=== PATIENT | female | born 1950 | race African-American/Black ===

== ENCOUNTER 2022-10-18 03:29 | Inpatient (IN) | payer OTHER ==
[2022-10-18 04:46] LABS: BASO % 0.5 % (0-2.0); EOS % 0.2 % (0-4.5); HEMATOCRIT 27.7 % (32.4-45.2); HEMOGLOBIN 8.8 GM/dL (10.7-15.3); LYMPH % 3.9 % (8-40); MCH 28.4 pg (25.7-33.7); MCHC 31.8 g/dl (32.0-36.0); MEAN CELL VOLUME 89.5 fl (80-96); MEAN PLT VOLUME 9.8 fl (7.5-11.1); MONO % 5.8 % (3.8-10.2); NEUT % 89.6 % (42.8-82.8); PLATELET COUNT 348 10^3/uL (134-434); RDW 17.9 % (11.6-15.6); VENOUS BASE EXCESS 9.5 mmol/L (-2-2); VENOUS O2 SATURATION 36.2 % (70-80); VENOUS PCO2 62.7 mmHg (38-52); VENOUS PH 7.368 (7.310-7.410); WHITE BLOOD COUNT 13.5 K/mm3 (4.0-10.0)
[2022-10-18 05:08] LABS: CALCIUM 8.7 mg/dL (8.5-10.1)
[2022-10-18 05:09] LABS: ALBUMIN 1.9 g/dl (3.4-5.0); BLOOD UREA NITROGEN 16.5 mg/dL (7-18)
[2022-10-18 05:14] LABS: BILIRUBIN,TOTAL 0.3 mg/dL (0.2-1); TOT PROT 6.7 g/dl (6.4-8.2)
[2022-10-18] MEDS ORDERED: CEFEPIME HCL/D5W 2 GM/50 ML BAG IVPB ONE (08:12)
[2022-10-18] MEDS ORDERED: CEFEPIME HCL/D5W 1 GM/50 ML BAG IVPB ONE (08:14)
[2022-10-18] MEDS ORDERED: VANCOMYCIN 1 GM in D5W (PRE-DOCKED) 1,000 MG/250 ML IVPB ONE (08:15)
[2022-10-18] MEDS ORDERED: ACETAMINOPHEN 1000 MG/100 ML BAG IVPB ONE (08:30)
[2022-10-18] MEDS ORDERED: SODIUM CHLORIDE 0.9% 500 ML INFUS.BAG IV ONE (08:38)
[2022-10-18] MEDS ORDERED: LACTATED RINGERS SOLUTION 1000 ML INFUS.BAG IV ONE (08:39)
[2022-10-18] MEDS ORDERED: ACETAMINOPHEN INJECTION 100 ML IVPB ONE (09:01)
[2022-10-18] MEDS ORDERED: VANCOMYCIN/WATER FOR INJ (PEG) 1,000 MG/200 ML BAG IVPB ONE (09:02)
[2022-10-18] MEDS ORDERED: CEFEPIME 1 GM/100 ML BAG IVPB ONE (09:02)
[2022-10-18] MEDS ORDERED: VANCOMYCIN 1,000 MG in DEXTROSE 5%-WATER - 250 ML IVPB ONE (12:27)
[2022-10-18] MEDS ORDERED: PIPERACILLIN/TAZOB 3.375 GM 3.375 GM/50 ML BAG IVPB ONE ×2 (12:51→16:48)
[2022-10-18] MEDS: PIPERACILLIN/TAZOB 3.375 GM 3.375 GM in DEXTROSE 5%-WATER - 50 ML IVPB SCH ×2 (13:13→17:22)
[2022-10-18] MEDS ORDERED: SODIUM CHLORIDE 250 ML IV PRN (16:11)
[2022-10-18] MEDS ORDERED: PIPERACILLIN/TAZOB 3.375 GM 3.375 GM in DEXTROSE 5%-WATER - 50 ML IVPB SCH (18:00)
[2022-10-19] MEDS: PIPERACILLIN/TAZOB 3.375 GM 3.375 GM in DEXTROSE 5%-WATER - 50 ML IVPB SCH ×3 (01:31→17:32)
[2022-10-19] MEDS ORDERED: VANCOMYCIN 1 GM in D5W (PRE-DOCKED) 1,000 MG/250 ML IVPB ONE (07:32)
[2022-10-19] MEDS ORDERED: VANCOMYCIN 1 GM/200 ML PREMIX BAG (RESTRICTED TO ID ONLY) IVPB SCH (10:00)
[2022-10-19 11:24] LABS: EOS % 1.7 % (0-4.5); HEMATOCRIT 21.9 % (32.4-45.2); HEMOGLOBIN 7.3 GM/dL (10.7-15.3); LYMPH % 17.5 % (8-40); MCH 29.4 pg (25.7-33.7); MCHC 33.4 g/dl (32.0-36.0); MEAN CELL VOLUME 88.1 fl (80-96); MEAN PLT VOLUME 9.9 fl (7.5-11.1); MONO % 8.8 % (3.8-10.2); PLATELET COUNT 308 10^3/uL (134-434); RBC 2.49 M/mm3 (3.60-5.2); RDW 17.6 % (11.6-15.6); WHITE BLOOD COUNT 7.9 K/mm3 (4.0-10.0)
[2022-10-19 11:25] LABS: INR 1.08 (0.83-1.09); PROTHROMBIN TIME (PATIENT) 12.4 SEC (9.7-13.0)
[2022-10-19 11:28] LABS: ACTIVATED PTT 31.9 SECONDS (25.2-36.5)
[2022-10-19 11:57] LABS: BLOOD UREA NITROGEN 26.4 mg/dL (7-18); CALCIUM 8.4 mg/dL (8.5-10.1)
[2022-10-19 11:58] LABS: MAGNESIUM 2.1 mg/dL (1.8-2.4)
[2022-10-19 11:59] LABS: CREATININE 3.1 mg/dL (0.55-1.3); PHOSPHOROUS 1.9 mg/dL (2.5-4.9)
[2022-10-19] MEDS ORDERED: EPOETIN ALFA-EPBX 10,000 UNIT/ML VIAL IVPUSH ONE (12:00)
[2022-10-19 12:01] LABS: BILIRUBIN,TOTAL 0.4 mg/dL (0.2-1)
[2022-10-19 12:03] LABS: TOT PROT 5.5 g/dl (6.4-8.2)
[2022-10-19 12:05] LABS: ALBUMIN 1.5 g/dl (3.4-5.0)
[2022-10-19] MEDS: ALBUTEROL SO4 2.5/IPRATROPIUM 0.5 INH SOL 3 ML VIAL.NEB. NEB SCH ×2 (15:03→22:27)
[2022-10-19] MEDS ORDERED: PIPERACILLIN/TAZOB 3.375 GM 3.375 GM in DEXTROSE 5%-WATER - 50 ML IVPB SCH (18:00)
[2022-10-19] MEDS: ATORVASTATIN CA 20 MG TABLET (FP) PEG SCH (22:14)
[2022-10-19] MEDS: amLODIPine BESYLATE 10 MG TABLET (FP) PEG SCH (22:14)
[2022-10-19] MEDS: CARVEDILOL 6.25 MG TABLET (FP) PEG SCH (22:14)
[2022-10-20] MEDS: PIPERACILLIN/TAZOB 3.375 GM 3.375 GM in DEXTROSE 5%-WATER - 50 ML IVPB SCH ×3 (03:37→20:20)
[2022-10-20] MEDS: ALBUTEROL SO4 2.5/IPRATROPIUM 0.5 INH SOL 3 ML VIAL.NEB. NEB SCH ×4 (08:05→20:22)
[2022-10-20] MEDS: amLODIPine BESYLATE 10 MG TABLET (FP) PEG SCH (10:07)
[2022-10-20] MEDS: CARVEDILOL 6.25 MG TABLET (FP) PEG SCH ×2 (10:07→22:20)
[2022-10-20 11:30] VITALS: BMI 22.6
[2022-10-20] MEDS ORDERED: PANTOPRAZOLE SODIUM 40 MG VIAL IVPUSH SCH ×2 (12:00→22:00)
[2022-10-20] MEDS ORDERED: SODIUM CHLORIDE 250 ML IV PRN (15:36)
[2022-10-20] MEDS ORDERED: EPOETIN ALFA-EPBX 10,000 UNIT/ML VIAL SQ ONE (15:45)
[2022-10-20 17:09] LABS: EOS % 0.7 % (0-4.5); HEMATOCRIT 22.5 % (32.4-45.2); HEMOGLOBIN 7.2 GM/dL (10.7-15.3); LYMPH % 15.9 % (8-40); MCH 28.3 pg (25.7-33.7); MEAN CELL VOLUME 88.5 fl (80-96); MONO % 10.3 % (3.8-10.2); NEUT % 72.1 % (42.8-82.8); PLATELET COUNT 315 10^3/uL (134-434); RBC 2.54 M/mm3 (3.60-5.2); RDW 17.9 % (11.6-15.6); WHITE BLOOD COUNT 7.5 K/mm3 (4.0-10.0)
[2022-10-20 17:21] LABS: INR 1.04 (0.83-1.09)
[2022-10-20 17:23] LABS: ACTIVATED PTT 32.2 SECONDS (25.2-36.5)
[2022-10-20 17:28] LABS: CALCIUM 7.9 mg/dL (8.5-10.1)
[2022-10-20 17:29] LABS: ALBUMIN 1.5 g/dl (3.4-5.0); BLOOD UREA NITROGEN 22.3 mg/dL (7-18)
[2022-10-20 17:32] LABS: CREATININE 2.6 mg/dL (0.55-1.3)
[2022-10-20 17:33] LABS: BILIRUBIN,TOTAL 0.4 mg/dL (0.2-1); TOT PROT 5.3 g/dl (6.4-8.2)
[2022-10-20] MEDS ORDERED: POTASSIUM CHLORIDE ORAL LIQUID 20 MEQ/15 ML PO ONE (19:11)
[2022-10-20] MEDS: ATORVASTATIN CA 20 MG TABLET (FP) PEG SCH (22:20)
[2022-10-21] MEDS: PIPERACILLIN/TAZOB 3.375 GM 3.375 GM in DEXTROSE 5%-WATER - 50 ML IVPB SCH ×3 (01:42→17:40)
[2022-10-21] MEDS: ALBUTEROL SO4 2.5/IPRATROPIUM 0.5 INH SOL 3 ML VIAL.NEB. NEB SCH ×4 (08:31→20:50)
[2022-10-21] MEDS: CARVEDILOL 6.25 MG TABLET (FP) PEG SCH (09:39)
[2022-10-21] MEDS: amLODIPine BESYLATE 10 MG TABLET (FP) PEG SCH (09:39)
[2022-10-21] MEDS: ATORVASTATIN CA 20 MG TABLET (FP) PEG SCH (21:16)
[2022-10-21] MEDS: CARVEDILOL 12.5 MG TABLET (FP) PEG SCH (21:17)
[2022-10-22] MEDS: PIPERACILLIN/TAZOB 3.375 GM 3.375 GM in DEXTROSE 5%-WATER - 50 ML IVPB SCH ×3 (02:45→17:46)
[2022-10-22] MEDS: ALBUTEROL SO4 2.5/IPRATROPIUM 0.5 INH SOL 3 ML VIAL.NEB. NEB SCH ×4 (08:04→20:25)
[2022-10-22] MEDS ORDERED: SODIUM CHLORIDE 250 ML IV PRN (08:37)
[2022-10-22] MEDS ORDERED: EPOETIN ALFA-EPBX 10,000 UNIT/ML VIAL SQ ONE (08:45)
[2022-10-22 09:47] LABS: BASO % 0.7 % (0-2.0); EOS % 1.3 % (0-4.5); HEMATOCRIT 28.3 % (32.4-45.2); HEMOGLOBIN 9.4 GM/dL (10.7-15.3); LYMPH % 12.8 % (8-40); MCH 29.7 pg (25.7-33.7); MCHC 33.2 g/dl (32.0-36.0); MEAN CELL VOLUME 89.4 fl (80-96); MEAN PLT VOLUME 9.8 fl (7.5-11.1); MONO % 8.6 % (3.8-10.2); NEUT % 76.6 % (42.8-82.8); PLATELET COUNT 325 10^3/uL (134-434); RBC 3.17 M/mm3 (3.60-5.2); RDW 16.5 % (11.6-15.6); WHITE BLOOD COUNT 10.8 K/mm3 (4.0-10.0)
[2022-10-22] MEDS ORDERED: IRON SUCROSE INJECTION 100 MG in SODIUM CHLORIDE 95 ML IVPB ONE (10:00)
[2022-10-22 10:05] LABS: CHLORIDE 98 mmol/L (98-107); SODIUM 141 mmol/L (136-145)
[2022-10-22 10:09] LABS: CALCIUM 8.4 mg/dL (8.5-10.1)
[2022-10-22 10:10] LABS: ALBUMIN 1.7 g/dl (3.4-5.0); ANION GAP 11 MMOL/L (8-16); BLOOD UREA NITROGEN 26.2 mg/dL (7-18); CO2 32 mmol/L (21-32); MAGNESIUM 1.9 mg/dL (1.8-2.4)
[2022-10-22 10:13] LABS: CREATININE 3.2 mg/dL (0.55-1.3); SGOT/AST 8 U/L (15-37); SGPT/ALT 11 U/L (13-61)
[2022-10-22 10:15] LABS: BILIRUBIN,TOTAL 0.5 mg/dL (0.2-1); TOT PROT 5.7 g/dl (6.4-8.2)
[2022-10-22 10:17] LABS: ALK PHOS 266 U/L (45-117); GLUCOSE,RANDOM 433 mg/dL (74-106)
[2022-10-22] MEDS: amLODIPine BESYLATE 10 MG TABLET (FP) PEG SCH (13:33)
[2022-10-22] MEDS: CARVEDILOL 12.5 MG TABLET (FP) PEG SCH ×2 (13:34→21:20)
[2022-10-22] MEDS ORDERED: DEXTROSE 50%-WATER - 25 GM/50 ML VIAL IVPUSH PRN (14:56)
[2022-10-22] MEDS: INSULIN SLIDING SCALE (NOVOLOG) 1 VIAL SQ SCH ×2 (17:45→21:18)
[2022-10-22] MEDS: hydrALAZINE HCL 25 MG TABLET (FP) PO SCH (21:20)
[2022-10-22] MEDS: ATORVASTATIN CA 20 MG TABLET (FP) PEG SCH (21:20)
[2022-10-23] MEDS: PIPERACILLIN/TAZOB 3.375 GM 3.375 GM in DEXTROSE 5%-WATER - 50 ML IVPB SCH ×3 (01:33→17:19)
[2022-10-23] MEDS: INSULIN SLIDING SCALE (NOVOLOG) 1 VIAL SQ SCH ×4 (06:02→21:34)
[2022-10-23] MEDS: ALBUTEROL SO4 2.5/IPRATROPIUM 0.5 INH SOL 3 ML VIAL.NEB. NEB SCH ×4 (07:40→20:14)
[2022-10-23] MEDS: CARVEDILOL 12.5 MG TABLET (FP) PEG SCH ×2 (09:28→21:30)
[2022-10-23] MEDS: hydrALAZINE HCL 25 MG TABLET (FP) PO SCH (09:28)
[2022-10-23] MEDS: amLODIPine BESYLATE 10 MG TABLET (FP) PEG SCH (09:28)
[2022-10-23] MEDS ORDERED: PANTOPRAZOLE 40 MG TABLET PO SCH (10:00)
[2022-10-23] MEDS: KCL 10 MEQ IVPB 10 MEQ/100 ML INFUS.BAG IVPB SCH ×3 (10:08→12:28)
[2022-10-23] MEDS ORDERED: FAMOTIDINE 40 MG/5 ML ORAL SUSPENSION PEG SCH (10:45)
[2022-10-23] MEDS: PANTOPRAZOLE SODIUM 40 MG VIAL IVPUSH SCH (11:30)
[2022-10-23] MEDS ORDERED: hydrALAZINE HCL 25 MG TABLET (FP) PO SCH (14:00)
[2022-10-23] MEDS: ATORVASTATIN CA 20 MG TABLET (FP) PEG SCH (21:30)
[2022-10-23] MEDS: hydrALAZINE HCL 50 MG TABLET (FP) PO SCH (21:30)
[2022-10-24] MEDS: PIPERACILLIN/TAZOB 3.375 GM 3.375 GM in DEXTROSE 5%-WATER - 50 ML IVPB SCH ×3 (02:28→17:14)
[2022-10-24] MEDS: hydrALAZINE HCL 50 MG TABLET (FP) PO SCH ×3 (06:57→22:14)
[2022-10-24] MEDS: INSULIN SLIDING SCALE (NOVOLOG) 1 VIAL SQ SCH ×4 (06:57→22:26)
[2022-10-24] MEDS: ALBUTEROL SO4 2.5/IPRATROPIUM 0.5 INH SOL 3 ML VIAL.NEB. NEB SCH ×4 (08:00→20:25)
[2022-10-24] MEDS: amLODIPine BESYLATE 10 MG TABLET (FP) PEG SCH (09:31)
[2022-10-24] MEDS: CARVEDILOL 12.5 MG TABLET (FP) PEG SCH ×2 (09:32→22:14)
[2022-10-24] MEDS: PANTOPRAZOLE SODIUM 40 MG VIAL IVPUSH SCH (09:32)
[2022-10-24 12:48] LABS: HEMATOCRIT 30.3 % (32.4-45.2); MCH 29.6 pg (25.7-33.7); MEAN CELL VOLUME 89.7 fl (80-96); MEAN PLT VOLUME 10.3 fl (7.5-11.1); PLATELET COUNT 364 10^3/uL (134-434); RBC 3.38 M/mm3 (3.60-5.2); RDW 16.7 % (11.6-15.6); WHITE BLOOD COUNT 10.7 K/mm3 (4.0-10.0)
[2022-10-24 13:17] LABS: ALBUMIN 1.8 g/dl (3.4-5.0); BLOOD UREA NITROGEN 30.1 mg/dL (7-18); CALCIUM 8.7 mg/dL (8.5-10.1)
[2022-10-24 13:20] LABS: CREATININE 3.6 mg/dL (0.55-1.3)
[2022-10-24 13:22] LABS: BILIRUBIN,TOTAL 0.5 mg/dL (0.2-1); TOT PROT 6.2 g/dl (6.4-8.2)
[2022-10-24] MEDS: ATORVASTATIN CA 20 MG TABLET (FP) PEG SCH (22:14)
[2022-10-25] MEDS: PIPERACILLIN/TAZOB 3.375 GM 3.375 GM in DEXTROSE 5%-WATER - 50 ML IVPB SCH ×2 (01:48→10:03)
[2022-10-25] MEDS: hydrALAZINE HCL 50 MG TABLET (FP) PO SCH ×2 (05:27→17:01)
[2022-10-25] MEDS: INSULIN SLIDING SCALE (NOVOLOG) 1 VIAL SQ SCH ×3 (06:02→17:01)
[2022-10-25] MEDS ORDERED: EPOETIN ALFA-EPBX 3,000 UNIT/ML VIAL IVPUSH ONE ×2 (07:28→12:30)
[2022-10-25] MEDS ORDERED: SODIUM CHLORIDE 250 ML IV PRN (07:28)
[2022-10-25] MEDS: ALBUTEROL SO4 2.5/IPRATROPIUM 0.5 INH SOL 3 ML VIAL.NEB. NEB SCH ×4 (07:55→20:50)
[2022-10-25] MEDS: PANTOPRAZOLE SODIUM 40 MG VIAL IVPUSH SCH (10:04)
[2022-10-25 12:05] LABS: HEMATOCRIT 27.9 % (32.4-45.2); HEMOGLOBIN 9.1 GM/dL (10.7-15.3); MCH 29.3 pg (25.7-33.7); MCHC 32.5 g/dl (32.0-36.0); MEAN CELL VOLUME 90.3 fl (80-96); MEAN PLT VOLUME 10.4 fl (7.5-11.1); PLATELET COUNT 351 10^3/uL (134-434); RBC 3.09 M/mm3 (3.60-5.2); RDW 16.4 % (11.6-15.6); WHITE BLOOD COUNT 9.4 K/mm3 (4.0-10.0)
[2022-10-25 12:34] LABS: CALCIUM 8.3 mg/dL (8.5-10.1)
[2022-10-25 12:36] LABS: BLOOD UREA NITROGEN 43.6 mg/dL (7-18)
[2022-10-25 12:37] LABS: CREATININE 4.5 mg/dL (0.55-1.3)
[2022-10-25 12:39] LABS: PHOSPHOROUS 2.4 mg/dL (2.5-4.9)
[2022-10-25] MEDS: CARVEDILOL 12.5 MG TABLET (FP) PEG SCH ×2 (16:53→22:56)
[2022-10-25] MEDS: amLODIPine BESYLATE 10 MG TABLET (FP) PEG SCH (16:54)
[2022-10-25] MEDS ORDERED: INSULIN (LEVEMIR) 100 UNITS/ML UNITS SQ SCH (22:00)
[2022-10-25] MEDS: ATORVASTATIN CA 20 MG TABLET (FP) PEG SCH (22:56)
[2022-10-25] MEDS: hydrALAZINE HCL 50 MG TABLET (FP) PEG SCH (22:56)
[2022-10-26] MEDS: PIPERACILLIN/TAZOB 3.375 GM 3.375 GM in DEXTROSE 5%-WATER - 50 ML IVPB SCH ×4 (01:43→17:10)
[2022-10-26] MEDS: hydrALAZINE HCL 50 MG TABLET (FP) PEG SCH ×3 (05:54→22:30)
[2022-10-26] MEDS: INSULIN SLIDING SCALE (NOVOLOG) 1 VIAL SQ SCH ×3 (05:59→17:10)
[2022-10-26] MEDS: INSULIN (LEVEMIR) 100 UNITS/ML UNITS SQ SCH ×2 (06:00→22:44)
[2022-10-26] MEDS: ALBUTEROL SO4 2.5/IPRATROPIUM 0.5 INH SOL 3 ML VIAL.NEB. NEB SCH ×4 (08:10→19:54)
[2022-10-26] MEDS: amLODIPine BESYLATE 10 MG TABLET (FP) PEG SCH (10:54)
[2022-10-26] MEDS: FAMOTIDINE 40 MG/5 ML ORAL SUSPENSION PEG SCH (10:54)
[2022-10-26] MEDS: CARVEDILOL 12.5 MG TABLET (FP) PEG SCH ×2 (10:55→22:30)
[2022-10-26 13:13] LABS: HEMATOCRIT 30.6 % (32.4-45.2); HEMOGLOBIN 9.7 GM/dL (10.7-15.3); MCH 28.8 pg (25.7-33.7); MCHC 31.6 g/dl (32.0-36.0); PLATELET COUNT 365 10^3/uL (134-434); RBC 3.36 M/mm3 (3.60-5.2); RDW 17.2 % (11.6-15.6); WHITE BLOOD COUNT 16.2 K/mm3 (4.0-10.0)
[2022-10-26 13:23] LABS: BLOOD UREA NITROGEN 24.2 mg/dL (7-18); CALCIUM 8.6 mg/dL (8.5-10.1); MAGNESIUM 1.8 mg/dL (1.8-2.4)
[2022-10-26] MEDS: ATORVASTATIN CA 20 MG TABLET (FP) PEG SCH (22:30)
[2022-10-27] MEDS: PIPERACILLIN/TAZOB 3.375 GM 3.375 GM in DEXTROSE 5%-WATER - 50 ML IVPB SCH ×4 (02:31→17:58)
[2022-10-27] MEDS: hydrALAZINE HCL 50 MG TABLET (FP) PEG SCH ×4 (05:45→23:26)
[2022-10-27] MEDS: INSULIN SLIDING SCALE (NOVOLOG) 1 VIAL SQ SCH ×3 (06:23→17:52)
[2022-10-27] MEDS: INSULIN (LEVEMIR) 100 UNITS/ML UNITS SQ SCH (06:24)
[2022-10-27] MEDS ORDERED: SODIUM CHLORIDE 250 ML IV PRN (07:28)
[2022-10-27] MEDS: ALBUTEROL SO4 2.5/IPRATROPIUM 0.5 INH SOL 3 ML VIAL.NEB. NEB SCH ×4 (08:00→20:40)
[2022-10-27] MEDS ORDERED: EPOETIN ALFA-EPBX 10,000 UNIT/ML VIAL SQ ONE (09:00)
[2022-10-27 10:06] LABS: HEMATOCRIT 26.8 % (32.4-45.2); HEMOGLOBIN 8.5 GM/dL (10.7-15.3); MCH 28.9 pg (25.7-33.7); MCHC 31.8 g/dl (32.0-36.0); MEAN CELL VOLUME 90.6 fl (80-96); MEAN PLT VOLUME 10.1 fl (7.5-11.1); PLATELET COUNT 321 10^3/uL (134-434); RBC 2.95 M/mm3 (3.60-5.2); RDW 17.4 % (11.6-15.6)
[2022-10-27 10:34] LABS: CALCIUM 8.3 mg/dL (8.5-10.1)
[2022-10-27 10:35] LABS: BLOOD UREA NITROGEN 34.1 mg/dL (7-18); CREATININE 3.9 mg/dL (0.55-1.3); MAGNESIUM 1.9 mg/dL (1.8-2.4)
[2022-10-27 10:36] LABS: PHOSPHOROUS 2.4 mg/dL (2.5-4.9)
[2022-10-27] MEDS ORDERED: POTASSIUM CHLORIDE ORAL LIQUID 20 MEQ/15 ML GT ONE (12:19)
[2022-10-27] MEDS: CARVEDILOL 12.5 MG TABLET (FP) PEG SCH ×2 (12:23→23:26)
[2022-10-27] MEDS: amLODIPine BESYLATE 10 MG TABLET (FP) PEG SCH (12:23)
[2022-10-27] MEDS: FAMOTIDINE 40 MG/5 ML ORAL SUSPENSION PEG SCH (15:03)
[2022-10-27] MEDS ORDERED: ONDANSETRON 4 MG/2 ML VIAL IM PRN (17:46)
[2022-10-27] MEDS ORDERED: AMOX TR/POTASSIUM CLAVULANATE 600 MG/5 ML PEG ONE (17:50)
[2022-10-27] MEDS ORDERED: TRIMETHOBENZAMIDE HCL 200MG/2ML INJ IM ONE (19:51)
[2022-10-27] MEDS ORDERED: ACETAMINOPHEN 325 MG TABLET (FP) PO PRN (20:34)
[2022-10-27] MEDS: ATORVASTATIN CA 20 MG TABLET (FP) PEG SCH (23:26)
[2022-10-28] MEDS: PIPERACILLIN/TAZOB 3.375 GM 3.375 GM in DEXTROSE 5%-WATER - 50 ML IVPB SCH ×2 (01:35→10:53)
[2022-10-28] MEDS: hydrALAZINE HCL 50 MG TABLET (FP) PEG SCH ×3 (06:20→22:16)
[2022-10-28] MEDS: INSULIN (LEVEMIR) 100 UNITS/ML UNITS SQ SCH (06:31)
[2022-10-28] MEDS: INSULIN SLIDING SCALE (NOVOLOG) 1 VIAL SQ SCH ×3 (06:31→17:04)
[2022-10-28] MEDS: ALBUTEROL SO4 2.5/IPRATROPIUM 0.5 INH SOL 3 ML VIAL.NEB. NEB SCH ×4 (08:20→20:00)
[2022-10-28] MEDS: FAMOTIDINE 40 MG/5 ML ORAL SUSPENSION PEG SCH (10:53)
[2022-10-28] MEDS: CARVEDILOL 12.5 MG TABLET (FP) PEG SCH ×2 (10:53→22:18)
[2022-10-28] MEDS: amLODIPine BESYLATE 10 MG TABLET (FP) PEG SCH (10:53)
[2022-10-28 12:22] LABS: HEMATOCRIT 29.5 % (32.4-45.2); MCHC 30.5 g/dl (32.0-36.0); MEAN CELL VOLUME 91.8 fl (80-96); MEAN PLT VOLUME 10.6 fl (7.5-11.1); PLATELET COUNT 365 10^3/uL (134-434); RBC 3.22 M/mm3 (3.60-5.2); RDW 17.7 % (11.6-15.6)
[2022-10-28 12:50] LABS: CALCIUM 9.3 mg/dL (8.5-10.1)
[2022-10-28 12:51] LABS: BLOOD UREA NITROGEN 21.9 mg/dL (7-18)
[2022-10-28 12:54] LABS: CREATININE 3.2 mg/dL (0.55-1.3)
[2022-10-28 14:25] LABS: WHITE BLOOD COUNT 31.8 K/mm3 (4.0-10.0)
[2022-10-28] MEDS ORDERED: VANCOMYCIN/WATER FOR INJ (PEG) 1,000 MG/200 ML BAG IVPB ONE (15:01)
[2022-10-28] MEDS: MEROPENEM 500 MG in DEXTROSE 5%-WATER 100 ML IVPB SCH (15:18)
[2022-10-28] MEDS: ATORVASTATIN CA 20 MG TABLET (FP) PEG SCH (22:16)
[2022-10-29] MEDS: MEROPENEM 500 MG in DEXTROSE 5%-WATER 100 ML IVPB SCH ×2 (03:34→16:19)
[2022-10-29] MEDS: hydrALAZINE HCL 50 MG TABLET (FP) PEG SCH ×2 (05:29→15:49)
[2022-10-29] MEDS: INSULIN (LEVEMIR) 100 UNITS/ML UNITS SQ SCH ×2 (06:16→21:55)
[2022-10-29] MEDS: INSULIN SLIDING SCALE (NOVOLOG) 1 VIAL SQ SCH ×3 (06:16→17:10)
[2022-10-29] MEDS: ALBUTEROL SO4 2.5/IPRATROPIUM 0.5 INH SOL 3 ML VIAL.NEB. NEB SCH ×4 (08:04→20:57)
[2022-10-29] MEDS ORDERED: EPOETIN ALFA-EPBX 10,000 UNIT/ML VIAL SQ ONE (09:00)
[2022-10-29] MEDS ORDERED: SODIUM CHLORIDE 250 ML IV PRN (09:00)
[2022-10-29 09:04] LABS: HEMATOCRIT 25.5 % (32.4-45.2); MCH 28.5 pg (25.7-33.7); MCHC 31.4 g/dl (32.0-36.0); MEAN CELL VOLUME 90.6 fl (80-96); MEAN PLT VOLUME 10.3 fl (7.5-11.1); PLATELET COUNT 355 10^3/uL (134-434); RBC 2.82 M/mm3 (3.60-5.2); RDW 18.4 % (11.6-15.6); WHITE BLOOD COUNT 25.1 K/mm3 (4.0-10.0)
[2022-10-29 09:24] LABS: ALBUMIN 1.8 g/dl (3.4-5.0); BLOOD UREA NITROGEN 31.2 mg/dL (7-18); CALCIUM 8.7 mg/dL (8.5-10.1); MAGNESIUM 1.8 mg/dL (1.8-2.4)
[2022-10-29 09:27] LABS: CREATININE 4.2 mg/dL (0.55-1.3)
[2022-10-29 09:28] LABS: PHOSPHOROUS 2.4 mg/dL (2.5-4.9)
[2022-10-29 09:29] LABS: BILIRUBIN,TOTAL 0.6 mg/dL (0.2-1); TOT PROT 5.7 g/dl (6.4-8.2)
[2022-10-29 10:32] LABS: ANISOCYTOSIS 0; HELMET CELLS 0; HOWELL-JOLLY BODIES 0; MACROCYTOSIS 0; OVALOCYTE 0; ROULEAU 0; SICKELED CELLS 0; TARGET CELLS 0; TEAR DROP CELLS 0; TOXIC GRANULATION 0
[2022-10-29] MEDS: amLODIPine BESYLATE 10 MG TABLET (FP) PEG SCH (12:57)
[2022-10-29] MEDS: CARVEDILOL 12.5 MG TABLET (FP) PEG SCH ×2 (12:58→21:55)
[2022-10-29] MEDS: FAMOTIDINE 40 MG/5 ML ORAL SUSPENSION PEG SCH (12:58)
[2022-10-29] MEDS ORDERED: VANCOMYCIN/WATER FOR INJ (PEG) 1,000 MG/200 ML BAG IVPB ONE (16:12)
[2022-10-29] MEDS: HEPARIN NA (PORCINE) 5,000 UNITS/ML 1ML VIAL SQ SCH (21:55)
[2022-10-29] MEDS: ATORVASTATIN CA 20 MG TABLET (FP) PEG SCH (21:55)
[2022-10-30] MEDS: hydrALAZINE HCL 50 MG TABLET (FP) PEG SCH ×4 (00:23→21:07)
[2022-10-30] MEDS: MEROPENEM 500 MG in DEXTROSE 5%-WATER 100 ML IVPB SCH ×2 (02:51→16:37)
[2022-10-30] MEDS: INSULIN SLIDING SCALE (NOVOLOG) 1 VIAL SQ SCH ×3 (06:26→17:01)
[2022-10-30] MEDS: INSULIN (LEVEMIR) 100 UNITS/ML UNITS SQ SCH ×2 (06:29→21:12)
[2022-10-30] MEDS: HEPARIN NA (PORCINE) 5,000 UNITS/ML 1ML VIAL SQ SCH ×3 (06:31→21:08)
[2022-10-30] MEDS: ALBUTEROL SO4 2.5/IPRATROPIUM 0.5 INH SOL 3 ML VIAL.NEB. NEB SCH ×4 (07:41→19:49)
[2022-10-30 09:20] LABS: HEMATOCRIT 31.2 % (32.4-45.2); HEMOGLOBIN 9.5 GM/dL (10.7-15.3); MCH 27.9 pg (25.7-33.7); MCHC 30.5 g/dl (32.0-36.0); MEAN CELL VOLUME 91.4 fl (80-96); MEAN PLT VOLUME 10.2 fl (7.5-11.1); PLATELET COUNT 329 10^3/uL (134-434); RBC 3.41 M/mm3 (3.60-5.2); RDW 18.1 % (11.6-15.6); WHITE BLOOD COUNT 18.5 K/mm3 (4.0-10.0)
[2022-10-30 09:45] LABS: CALCIUM 9.1 mg/dL (8.5-10.1)
[2022-10-30 09:47] LABS: MAGNESIUM 1.9 mg/dL (1.8-2.4)
[2022-10-30 09:48] LABS: PHOSPHOROUS 1.9 mg/dL (2.5-4.9)
[2022-10-30 09:49] LABS: BLOOD UREA NITROGEN 16.8 mg/dL (7-18)
[2022-10-30 09:50] LABS: BILIRUBIN,TOTAL 0.4 mg/dL (0.2-1); TOT PROT 6.1 g/dl (6.4-8.2)
[2022-10-30 09:52] LABS: CREATININE 2.6 mg/dL (0.55-1.3)
[2022-10-30 10:28] LABS: ANISOCYTOSIS 0; HELMET CELLS 0; HOWELL-JOLLY BODIES 0; MACROCYTOSIS 0; OVALOCYTE 0; ROULEAU 0; SICKELED CELLS 0; TARGET CELLS 0; TEAR DROP CELLS 0; TOXIC GRANULATION 0
[2022-10-30] MEDS: FAMOTIDINE 40 MG/5 ML ORAL SUSPENSION PEG SCH (11:09)
[2022-10-30] MEDS: CARVEDILOL 12.5 MG TABLET (FP) PEG SCH ×2 (11:09→21:07)
[2022-10-30] MEDS: amLODIPine BESYLATE 10 MG TABLET (FP) PEG SCH (11:09)
[2022-10-30] MEDS: ATORVASTATIN CA 20 MG TABLET (FP) PEG SCH (21:07)
[2022-10-31] MEDS: MEROPENEM 500 MG in DEXTROSE 5%-WATER 100 ML IVPB SCH ×2 (03:13→14:20)
[2022-10-31] MEDS: HEPARIN NA (PORCINE) 5,000 UNITS/ML 1ML VIAL SQ SCH ×3 (06:10→22:01)
[2022-10-31] MEDS: hydrALAZINE HCL 50 MG TABLET (FP) PEG SCH ×3 (06:10→23:17)
[2022-10-31] MEDS: INSULIN (LEVEMIR) 100 UNITS/ML UNITS SQ SCH ×2 (06:14→22:01)
[2022-10-31] MEDS: INSULIN SLIDING SCALE (NOVOLOG) 1 VIAL SQ SCH ×3 (06:15→17:00)
[2022-10-31] MEDS: ALBUTEROL SO4 2.5/IPRATROPIUM 0.5 INH SOL 3 ML VIAL.NEB. NEB SCH ×4 (08:00→20:05)
[2022-10-31] MEDS: CARVEDILOL 12.5 MG TABLET (FP) PEG SCH ×2 (09:20→23:17)
[2022-10-31] MEDS: amLODIPine BESYLATE 10 MG TABLET (FP) PEG SCH (09:20)
[2022-10-31] MEDS: FAMOTIDINE 40 MG/5 ML ORAL SUSPENSION PEG SCH (09:20)
[2022-10-31 10:49] LABS: HEMOGLOBIN 8.7 GM/dL (10.7-15.3); MCHC 31.1 g/dl (32.0-36.0); MEAN CELL VOLUME 90.1 fl (80-96); MEAN PLT VOLUME 10.2 fl (7.5-11.1); PLATELET COUNT 374 10^3/uL (134-434); RBC 3.11 M/mm3 (3.60-5.2); RDW 17.6 % (11.6-15.6); WHITE BLOOD COUNT 10.7 K/mm3 (4.0-10.0)
[2022-10-31 11:34] LABS: CALCIUM 8.9 mg/dL (8.5-10.1)
[2022-10-31 11:35] LABS: ALBUMIN 1.8 g/dl (3.4-5.0); BLOOD UREA NITROGEN 28.2 mg/dL (7-18); MAGNESIUM 1.9 mg/dL (1.8-2.4)
[2022-10-31 11:38] LABS: PHOSPHOROUS 1.8 mg/dL (2.5-4.9)
[2022-10-31 11:39] LABS: BILIRUBIN,TOTAL 0.3 mg/dL (0.2-1)
[2022-10-31 11:40] LABS: TOT PROT 5.9 g/dl (6.4-8.2)
[2022-10-31 12:24] LABS: ANISOCYTOSIS 1+; MACROCYTOSIS 0
[2022-10-31] MEDS: ATORVASTATIN CA 20 MG TABLET (FP) PEG SCH (22:01)
[2022-11-01] MEDS: MEROPENEM 500 MG in DEXTROSE 5%-WATER 100 ML IVPB SCH ×2 (02:52→14:24)
[2022-11-01] MEDS: hydrALAZINE HCL 50 MG TABLET (FP) PEG SCH ×3 (05:42→21:09)
[2022-11-01] MEDS: INSULIN SLIDING SCALE (NOVOLOG) 1 VIAL SQ SCH ×3 (06:05→16:47)
[2022-11-01] MEDS: INSULIN (LEVEMIR) 100 UNITS/ML UNITS SQ SCH ×2 (06:06→21:09)
[2022-11-01] MEDS: HEPARIN NA (PORCINE) 5,000 UNITS/ML 1ML VIAL SQ SCH ×3 (06:07→21:09)
[2022-11-01] MEDS ORDERED: SODIUM CHLORIDE 250 ML IV PRN (07:13)
[2022-11-01] MEDS: ALBUTEROL SO4 2.5/IPRATROPIUM 0.5 INH SOL 3 ML VIAL.NEB. NEB SCH ×4 (07:40→21:21)
[2022-11-01 08:46] LABS: HEMATOCRIT 26.9 % (32.4-45.2); HEMOGLOBIN 8.5 GM/dL (10.7-15.3); MCH 28.4 pg (25.7-33.7); MCHC 31.8 g/dl (32.0-36.0); MEAN CELL VOLUME 89.4 fl (80-96); MEAN PLT VOLUME 9.6 fl (7.5-11.1); PLATELET COUNT 388 10^3/uL (134-434); RBC 3.01 M/mm3 (3.60-5.2); WHITE BLOOD COUNT 9.6 K/mm3 (4.0-10.0)
[2022-11-01] MEDS ORDERED: EPOETIN ALFA-EPBX 10,000 UNIT/ML VIAL IVPUSH ONE (09:00)
[2022-11-01 09:14] LABS: CALCIUM 9.2 mg/dL (8.5-10.1)
[2022-11-01 09:15] LABS: ALBUMIN 1.8 g/dl (3.4-5.0); BLOOD UREA NITROGEN 39.5 mg/dL (7-18)
[2022-11-01 09:17] LABS: PHOSPHOROUS 2.6 mg/dL (2.5-4.9)
[2022-11-01 09:18] LABS: CREATININE 4.9 mg/dL (0.55-1.3)
[2022-11-01 09:19] LABS: TOT PROT 5.8 g/dl (6.4-8.2)
[2022-11-01 09:21] LABS: BILIRUBIN,TOTAL 0.4 mg/dL (0.2-1)
[2022-11-01] MEDS: CARVEDILOL 12.5 MG TABLET (FP) PEG SCH ×2 (11:46→21:09)
[2022-11-01] MEDS: amLODIPine BESYLATE 10 MG TABLET (FP) PEG SCH (11:46)
[2022-11-01] MEDS: FAMOTIDINE 40 MG/5 ML ORAL SUSPENSION PEG SCH (11:47)
[2022-11-01] MEDS ORDERED: ACETAMINOPHEN 650 MG/20.3 ML ORAL SOLUTION (CUPS) GT PRN (17:48)
[2022-11-01] MEDS: ATORVASTATIN CA 20 MG TABLET (FP) PEG SCH (21:09)
[2022-11-01] MEDS ORDERED: ACETAMINOPHEN 650 MG/20.3 ML ORAL SOLUTION (CUPS) PEG PRN (23:48)
[2022-11-02] MEDS: MEROPENEM 500 MG in DEXTROSE 5%-WATER 100 ML IVPB SCH (03:31)
[2022-11-02] MEDS: HEPARIN NA (PORCINE) 5,000 UNITS/ML 1ML VIAL SQ SCH ×3 (06:15→22:00)
[2022-11-02] MEDS: INSULIN SLIDING SCALE (NOVOLOG) 1 VIAL SQ SCH ×3 (06:19→16:31)
[2022-11-02] MEDS: INSULIN (LEVEMIR) 100 UNITS/ML UNITS SQ SCH ×2 (06:19→22:20)
[2022-11-02] MEDS: ALBUTEROL SO4 2.5/IPRATROPIUM 0.5 INH SOL 3 ML VIAL.NEB. NEB SCH ×4 (08:25→20:05)
[2022-11-02] MEDS: hydrALAZINE HCL 50 MG TABLET (FP) PEG SCH ×2 (10:00→22:18)
[2022-11-02] MEDS: CARVEDILOL 12.5 MG TABLET (FP) PEG SCH ×2 (10:00→22:18)
[2022-11-02] MEDS: amLODIPine BESYLATE 10 MG TABLET (FP) PEG SCH (10:00)
[2022-11-02] MEDS: FAMOTIDINE 40 MG/5 ML ORAL SUSPENSION PEG SCH (10:00)
[2022-11-02 11:40] LABS: HEMATOCRIT 30.1 % (32.4-45.2); HEMOGLOBIN 9.4 GM/dL (10.7-15.3); MCH 28.2 pg (25.7-33.7); MCHC 31.2 g/dl (32.0-36.0); MEAN CELL VOLUME 90.3 fl (80-96); MEAN PLT VOLUME 10.6 fl (7.5-11.1); PLATELET COUNT 441 10^3/uL (134-434); RBC 3.33 M/mm3 (3.60-5.2); RDW 18.2 % (11.6-15.6); WHITE BLOOD COUNT 11.2 K/mm3 (4.0-10.0)
[2022-11-02 12:06] LABS: ALBUMIN 2.1 g/dl (3.4-5.0); BLOOD UREA NITROGEN 26.4 mg/dL (7-18); MAGNESIUM 1.9 mg/dL (1.8-2.4)
[2022-11-02 12:09] LABS: BILIRUBIN,TOTAL 0.5 mg/dL (0.2-1); CREATININE 3.2 mg/dL (0.55-1.3); PHOSPHOROUS 2.2 mg/dL (2.5-4.9); TOT PROT 6.2 g/dl (6.4-8.2)
[2022-11-02] MEDS ORDERED: SODIUM CHLORIDE 250 ML IV PRN (18:33)
[2022-11-02] MEDS ORDERED: LACTOBACILLUS ACIDOPHILUS 1 TABLET GT SCH (22:00)
[2022-11-02] MEDS: ATORVASTATIN CA 20 MG TABLET (FP) PEG SCH (22:18)
[2022-11-03] MEDS: HEPARIN NA (PORCINE) 5,000 UNITS/ML 1ML VIAL SQ SCH ×2 (06:45→15:43)
[2022-11-03] MEDS: INSULIN SLIDING SCALE (NOVOLOG) 1 VIAL SQ SCH ×3 (06:46→17:06)
[2022-11-03] MEDS: INSULIN (LEVEMIR) 100 UNITS/ML UNITS SQ SCH (06:58)
[2022-11-03] MEDS: ALBUTEROL SO4 2.5/IPRATROPIUM 0.5 INH SOL 3 ML VIAL.NEB. NEB SCH ×3 (07:37→15:50)
[2022-11-03] MEDS: amLODIPine BESYLATE 10 MG TABLET (FP) PEG SCH (09:48)
[2022-11-03] MEDS: FAMOTIDINE 40 MG/5 ML ORAL SUSPENSION PEG SCH (09:49)
[2022-11-03] MEDS ORDERED: CARVEDILOL 12.5 MG TABLET (FP) PEG SCH (11:00)
[2022-11-03 11:13] LABS: HEMATOCRIT 27.9 % (32.4-45.2); HEMOGLOBIN 9.2 GM/dL (10.7-15.3); MCH 29.4 pg (25.7-33.7); MCHC 32.9 g/dl (32.0-36.0); MEAN CELL VOLUME 89.3 fl (80-96); MEAN PLT VOLUME 10.2 fl (7.5-11.1); PLATELET COUNT 374 10^3/uL (134-434); RBC 3.13 M/mm3 (3.60-5.2); WHITE BLOOD COUNT 9.6 K/mm3 (4.0-10.0)
[2022-11-03 11:35] LABS: ALBUMIN 1.9 g/dl (3.4-5.0); BLOOD UREA NITROGEN 41.5 mg/dL (7-18); CALCIUM 9.1 mg/dL (8.5-10.1)
[2022-11-03 11:37] LABS: CREATININE 4.2 mg/dL (0.55-1.3)
[2022-11-03 11:39] LABS: BILIRUBIN,TOTAL 0.5 mg/dL (0.2-1)
[2022-11-03] MEDS ORDERED: EPOETIN ALFA-EPBX 10,000 UNIT/ML VIAL IVPUSH ONE (11:45)
[2022-11-03 15:31] VITALS: BP 127/58; TEMP 98.2
[2022-11-03 16:45] VITALS: PULSE 83; RESP 15
== END 2022-11-03 17:46 | DRG 870 ==
LOC: JER 03:29 → JERBED 07:49 → J5S 21:33
PROVIDERS: ADMIT Internal Medicine; ATTEND Internal Medicine
PROC: 5A1955Z Respiratory Ventilation, Greater than 96 Consecutive Hours (ICD-10-PCS; principal; 2022-10-18)
PROC: 5A1D70Z Performance of Urinary Filtration, Intermittent, Less than 6 Hours Per Day (ICD-10-PCS; 2022-10-19)
PROC: 5A1D70Z Performance of Urinary Filtration, Intermittent, Less than 6 Hours Per Day (ICD-10-PCS; 2022-10-20)
PROC: 30233N1 Transfusion of Nonautologous Red Blood Cells into Peripheral Vein, Percutaneous Approach (ICD-10-PCS; 2022-10-21)
PROC: 5A1D70Z Performance of Urinary Filtration, Intermittent, Less than 6 Hours Per Day (ICD-10-PCS; 2022-10-22)
PROC: 5A1D70Z Performance of Urinary Filtration, Intermittent, Less than 6 Hours Per Day (ICD-10-PCS; 2022-10-25)
PROC: 5A1D70Z Performance of Urinary Filtration, Intermittent, Less than 6 Hours Per Day (ICD-10-PCS; 2022-10-27)
PROC: 5A1D70Z Performance of Urinary Filtration, Intermittent, Less than 6 Hours Per Day (ICD-10-PCS; 2022-10-29)
PROC: 5A1D70Z Performance of Urinary Filtration, Intermittent, Less than 6 Hours Per Day (ICD-10-PCS; 2022-11-01)
PROC: 5A1D70Z Performance of Urinary Filtration, Intermittent, Less than 6 Hours Per Day (ICD-10-PCS; 2022-11-03)
DX: A41.89 Other specified sepsis (principal); N18.6 End stage renal disease; J69.0 Pneumonitis due to inhalation of food and vomit; I12.0 Hypertensive chronic kidney disease with stage 5 chronic kidney disease or end stage renal disease; K92.0 Hematemesis; J96.10 Chronic respiratory failure, unspecified whether with hypoxia or hypercapnia; K92.2 Gastrointestinal hemorrhage, unspecified; J90 Pleural effusion, not elsewhere classified; J98.11 Atelectasis; R00.0 Tachycardia, unspecified; E11.22 Type 2 diabetes mellitus with diabetic chronic kidney disease; D72.829 Elevated white blood cell count, unspecified; E78.5 Hyperlipidemia, unspecified; L89.612 Pressure ulcer of right heel, stage 2; L89.622 Pressure ulcer of left heel, stage 2; D63.1 Anemia in chronic kidney disease; Z93.0 Tracheostomy status; Z93.1 Gastrostomy status; Z99.2 Dependence on renal dialysis
CPT/HCPCS: 0241U-QW; 36415; 36430; 71045-TC-FY; 74018-TC-FY; 74177-TC; 80048; 80053; 82272; 82553; 82728; 82803; 82962; 82977; 83540; 83550; 83605; 83735; 84100; 84484; 85025; 85027; 85610; 85730; 86803; 86850; 86870; 86900; 86901; 86902; 86922; 87040; 87070; 87186; 87205; 87340; 93005; 93010; 94002; 94640; 99285-25; C9803-CS; G0480; J1644; J1756; P9058; Q5106; Q9967; U0003; U0005

== ENCOUNTER 2022-11-08 20:45 | Emergency (ER) | payer OTHER ==
[2022-11-08 21:04] VITALS: BP 123/59; PULSE 69; RESP 23; BMI 29.9
[2022-11-08 21:34] LABS: VENOUS BASE EXCESS -12.6 mmol/L (-2-2); VENOUS O2 SATURATION 63.4 % (70-80)
[2022-11-08 21:36] LABS: VENOUS PCO2 > 148.5 mmHg (38-52); VENOUS PH 6.842 (7.310-7.410)
[2022-11-08 21:38] LABS: EOS % 0.6 % (0-4.5); HEMATOCRIT 32.9 % (32.4-45.2); LYMPH % 14.7 % (8-40); MCH 27.7 pg (25.7-33.7); MCHC 30.4 g/dl (32.0-36.0); MEAN CELL VOLUME 91.2 fl (80-96); MEAN PLT VOLUME 9.8 fl (7.5-11.1); MONO % 6.5 % (3.8-10.2); NEUT % 77.2 % (42.8-82.8); PLATELET COUNT 577 10^3/uL (134-434); RBC 3.61 M/mm3 (3.60-5.2); RDW 18.5 % (11.6-15.6); WHITE BLOOD COUNT 19.3 K/mm3 (4.0-10.0)
[2022-11-08 21:45] LABS: INR 1.03 (0.83-1.09); PROTHROMBIN TIME (PATIENT) 11.8 SEC (9.7-13.0)
[2022-11-08 21:48] LABS: ACTIVATED PTT 38.9 SECONDS (25.2-36.5)
[2022-11-08 22:00] LABS: CHLORIDE 98 mmol/L (98-107)
[2022-11-08 22:03] LABS: CALCIUM 9.2 mg/dL (8.5-10.1)
[2022-11-08 22:04] LABS: ALBUMIN 2.3 g/dl (3.4-5.0); BLOOD UREA NITROGEN 28.9 mg/dL (7-18); CO2 28 mmol/L (21-32); GLUCOSE,RANDOM 318 mg/dL (74-106)
[2022-11-08 22:07] LABS: CREATININE 3.1 mg/dL (0.55-1.3); SGOT/AST 56 U/L (15-37)
[2022-11-08 22:08] LABS: TOT PROT 7.5 g/dl (6.4-8.2)
[2022-11-08 22:22] LABS: ALK PHOS 358 U/L (45-117); ANION GAP 8 MMOL/L (8-16); BILIRUBIN,TOTAL 0.5 mg/dL (0.2-1); SGPT/ALT 31 U/L (13-61); SODIUM 134 mmol/L (136-145)
== END 2022-11-09 02:15 | disposition expired ==
LOC: JER 20:45
DX: I46.9 Cardiac arrest, cause unspecified (principal); T17.900A Unspecified foreign body in respiratory tract, part unspecified causing asphyxiation, initial encounter; J96.90 Respiratory failure, unspecified, unspecified whether with hypoxia or hypercapnia
CPT/HCPCS: 36415; 71045-TC-FY; 74019-TC-FY; 80053; 82553; 82803; 83605; 84484; 85025; 85610; 85730; 87040; 99291